=== PATIENT | female | born 1990 | race Asian ===

== ENCOUNTER 2024-03-20 08:24 | Outpatient (CLI) | payer OTHER, SELFPAY ==
--- OUTSIDE RECORDS SUMMARY | 2024-03-20 08:28 | XMS_ITS | Data Portability ---
Author Organization [place] [facility] [employer], Main Office Address [address] [place] [address] Care Team Providers Care Drug Safety Physician Name Role Phone CARLOS SAMUEL Primary Care Provider [phone] Assessment Encounter Date Assessment Date Assessment LastModified by Organization Details LastModified Time 11/11/2022 11/11/2022 32 yo F with - WELL ADULT VISIT - EYE REDNESS, B/L - FATIGUE - OVERWEIGHT - H/O VIT B12 DEFICIENCY D/w pt in detail about her findings and further plan of care. Will do routine labs. Routine eye care explained. Diet and exercise explained in detail. Cont f/u with Ophtho as per schedule. HM: WWE - 3 yrs ago. Cont f/u with Gyne/CADDYMASTER as per schedule. Flu - On next visit. Tdap, Gardasil - At pharmacy/HD. F/u in 2 weeks. Annual labs in 12/03. [email or web address] Not available 11/11/2022 17:03:53 11/18/2022 11/18/2022 32 yo F with - ANEMIA, new - VIT D DEFICIENCY - EYE REDNESS, B/L - FATIGUE - VIT B12 DEFICIENCY, mild - OVERWEIGHT Annual labs: 11/14/22. D/w pt in detail about her findings, recent labs and further plan of care. Meds as directed. Routine eye care explained. Diet and exercise explained in detail. Cont f/u with Ophtho as per schedule. HM: WWE - 3 yrs ago. Cont f/u with Gyne/CADDYMASTER as per schedule. Flu - 11/18/22. Tdap, Gardasil - At pharmacy/HD. F/u in 3 months. CBC, TIBC in 03/05. Annual labs in 12/03. [email or web address] Not available 11/18/2022 12:48:54 Plan of Treatment Reminders Order Date Submit Date Provider Last Modified By Organization Details Last Modified Time Details Appointments None recorded. Lab vitamin D, 25-hydroxy, total, serum [address] (Lab), [address] [place], [address], 08:52:31 vitamin B12 + folate, serum or blood [address] (Lab), [address] [place], [address], 08:52:31 glycohemogl obin, total, blood [address] [facility] (Lab), [address] [place], [address], 18:07:05 CBC w/ auto diff [address] [facility] (Lab), [address] [place], [address], 13:54:52 CMP, serum or plasma [address] [facility] (Lab), [address] [place], [address], 3 13:55:48 lipid panel, serum [address] [facility] (Lab), [address] [place], [address], 13:55:51 TSH, serum, reflex free T4 [address] (Lab), [address] [place], [address], 3 08:52:30 urinalysis complete, reflex culture [address] (Lab), [address] [place], [address], 3 08:52:31 CBC w/ auto diff 2022 024 [email or web address] [facility] (Lab), [address] [place], [address], 4 11:35:56 iron + total iron-bindin g capacity (TIBC), serum 2022 024 [email or web address] [facility] (Lab), [address] [place], [address], 4 11:35:56 pap, IG + HR HPV 2022 023 [facility] (Lab), [address] [place], [address], 3 07:53:12 Referral None recorded. Procedures None recorded. Surgeries None recorded. Imaging None recorded. Medication Orders cyanocobala min (vit B-12) 1,000 mcg sublingual tablet 2022 023 [facility] [place], [address], 3 12:44:38 cyanocobala min (vit B-12) 1,000 mcg/mL injection solution 2022 023 [email or web address] Not available 14:11:53 ergocalcife rol (vitamin D2) 1,250 mcg (50,000 unit) capsule 2022 023 [facility] [place], [address], 3 12:44:40 ferrous sulfate 325 mg (65 mg iron) tablet 2022 023 [facility] [address] [place], [address], 12:44:39 Patient TargetsNo targets recorded. Patient Instructions Encounter Date Encounter Id Patient Instructions Last Modified By Organization Details Last Modified Time 11/27/2022 [id number] FU in 3 year for wwe with pap, preference per patient. [email or web address] Not available 11/27/2022 18:11:17 Reason for Referral None Reported. Results Created Date Observation Date Name Description Value Unit Range Abnormal Flag Note LastModifiedBy Organization Detail LastModifiedTime 11/15/1911/14/2022 CBC/C OMPLE TE BLD COUNT W/DIF F white blood cells 6.6 x10'3 /uL 4.2-10 .8 Not Available [facility] (Lab) [address] [place], [address], 11/14/2022 13:54:52 11/15/1911/14/2022 CBC/C OMPLE TE BLD COUNT W/DIF F red blood cells 4.47 x10'6 /uL 3.80-5 .20 Not Available [facility] (Lab) [address] [place], [address], 11/14/2022 13:54:52 11/15/1911/14/2022 CBC/C OMPLE TE BLD COUNT W/DIF F hemoglobin 11.7 g/dL 12.0-1 5.6 low Not Available [facility] (Lab) [address] [place], [address], 11/14/2022 13:54:52 11/15/1911/14/2022 CBC/C OMPLE TE BLD COUNT W/DIF F hematocrit 37.7 % 35.7-4 5.7 Not Available [facility] (Lab) [address] [place], [address], 11/14/2022 13:54:52 11/15/1911/14/2022 CBC/C OMPLE TE BLD COUNT W/DIF F mean red cell volume 84.3 fL 82.0-9 9.0 Not Available [facility] (Lab) [address] [place], [address], 11/14/2022 13:54:52 11/15/1911/14/2022 CBC/C OMPLE TE BLD COUNT W/DIF F mean red cell hemoglobin 26.2 pg 27.0-3 3.0 low Not Available [facility] (Lab) [address] [place], [address], 11/14/2022 13:54:52 11/15/1911/14/2022 CBC/C OMPLE TE BLD COUNT W/DIF F mean RBC HGB concentratio n 31.0 g/dL 31.0-3 6.0 Not Available [facility] (Lab) [address] [place], [address], 11/14/2022 13:54:52 11/15/1911/14/2022 CBC/C OMPLE TE BLD COUNT W/DIF F red cell distribution width 13.6 % 11.8-1 5.5 Not Available [facility] (Lab) [address] [place], [address], 11/14/2022 13:54:52 11/15/1911/14/2022 CBC/C OMPLE TE BLD COUNT W/DIF F platelets 352 x10'3 /uL 150-40 0 Not Available [facility] (Lab) [address] [place], [address], 11/14/2022 13:54:52 11/15/1911/14/2022 CBC/C OMPLE TE BLD COUNT W/DIF F mean platelet volume 9.8 fL 9.0-12 .4 Not Available [facility] (Lab) [address] [place], [address], 11/14/2022 13:54:52 11/15/1911/14/2022 CBC/C OMPLE TE BLD COUNT W/DIF F neutrophils 51.8 % 39.0-7 2.0 Not Available [facility] (Lab) [address] [place], [address], 11/14/2022 13:54:52 11/15/1911/14/2022 CBC/C OMPLE TE BLD COUNT W/DIF F lymphocytes 41.6 % 16.0-4 7.0 Not Available [facility] (Lab) [address] [place], [address], 11/14/2022 13:54:52 11/15/1911/14/2022 CBC/C OMPLE TE BLD COUNT W/DIF F monocytes 3.9 % 5.0-12 .0 low Not Available [facility] (Lab) [address] [place], [address], 11/14/2022 13:54:52 11/15/1911/14/2022 CBC/C OMPLE TE BLD COUNT W/DIF F eosinophils 2.3 % 1.0-7. 0 Not Available [facility] (Lab) [address] [place], [address], 11/14/2022 13:54:52 11/15/1911/14/2022 CBC/C OMPLE TE BLD COUNT W/DIF F basophils 0.2 % 0.0-2. 0 Not Available [facility] (Lab) [address] [place], [address], 11/14/2022 13:54:52 11/15/1911/14/2022 CBC/C OMPLE TE BLD COUNT W/DIF F immature granulocytes 0.2 % 0.00-0 .50 Not Available [facility] (Lab) [address] [place], [address], 11/14/2022 13:54:52 11/15/1911/14/2022 CBC/C OMPLE TE BLD COUNT W/DIF F neutrophils, absolute count 3.42 x10'3 /uL 1.5-8. 0 Not Available [facility] (Lab) [address] [place], [address], 11/14/2022 13:54:52 11/15/1911/14/2022 CBC/C OMPLE TE BLD COUNT W/DIF F lymphocytes, absolute count 2.74 x10'3 /uL 1.07-3 .43 Not Available [facility] (Lab) [address] [place], [address], 11/14/2022 13:54:52 11/15/1911/14/2022 CBC/C OMPLE TE BLD COUNT W/DIF F monocytes, absolute count 0.26 x10'3 /uL 0.29-0 .99 low Not Available [facility] (Lab) [address] [place], [address], 11/14/2022 13:54:52 11/15/1911/14/2022 CBC/C OMPLE TE BLD COUNT W/DIF F eosinophils, absolute count 0.15 x10'3 /uL 0.02-0 .53 Not Available [facility] (Lab) [address] [place], [address], 11/14/2022 13:54:52 11/15/1911/14/2022 CBC/C OMPLE TE BLD COUNT W/DIF F basophils, absolute count 0.01 x10'3 /uL 0.01-0 .08 Not Available [facility] (Lab) [address] [place], [address], 11/14/2022 13:54:52 11/15/1911/14/2022 CBC/C OMPLE TE BLD COUNT W/DIF F immature granulocytes ,absolute 0.01 x10'3 /uL 0.00-0 .05 Not Available [facility] (Lab) [address] [place], [address], 11/14/2022 13:54:52 11/15/1911/14/2022 CBC/C OMPLE TE BLD COUNT W/DIF F nucleated red blood cells 0.0 % -0 Not Available [facility] (Lab) [address] [place], [address], 11/14/2022 13:54:52 11/15/19 23 11/14/2022 CBC/C OMPLE TE BLD COUNT W/DIF F NRBC# 0.00 x10'3 /uL Not Available [facility] (Lab) [address] [place], [address], 11/14/2022 13:54:52 11/15/1911/14/2022 COMPR EHENS FAVIOLA METAB OLIC PANEL sodium 138 mmol/ L 137-14 5 Not Available [facility] (Lab) [address] [place], [address], 11/14/2022 13:55:48 11/15/1911/14/2022 COMPR EHENS FAVIOLA METAB OLIC PANEL potassium 4.6 mmol/ L 3.5-5. 1 Not Available [facility] (Lab) [address] [place], [address], 11/14/2022 13:55:48 11/15/19 23 11/14/2022 COMPR EHENS FAVIOLA METAB OLIC PANEL chloride 106 mmol/ L 98-107 Not Available [facility] (Lab) [address] [place], [address], 11/14/2022 13:55:48 11/15/19 23 11/14/2022 COMPR EHENS FAVIOLA METAB OLIC PANEL carbon dioxide 26 mmol/ L 22-30 Not Available [facility] (Lab) [address] [place], [address], 11/14/2022 13:55:48 11/15/19 23 11/14/2022 COMPR EHENS FAVIOLA METAB OLIC PANEL anion gap 10.6 mmol/ L 14-22 low Not Available [facility] (Lab) [address] [place], [address], 11/14/2022 13:55:48 11/15/1911/14/2022 COMPR EHENS FAVIOLA METAB OLIC PANEL glucose 84 mg/dL 70-99 Not Available [facility] (Lab) [address] [place], [address], 11/14/2022 13:55:48 11/15/1911/14/2022 COMPR EHENS FAVIOLA METAB OLIC PANEL BUN 7 mg/dL 8-19 low Not Available [facility] (Lab) [address] [place], [address], 11/14/2022 13:55:48 11/15/1911/14/2022 COMPR EHENS FAVIOLA METAB OLIC PANEL creatinine 0.54 mg/dL 0.66-1 .25 low Not Available [facility] (Lab) [address] [place], [address], 11/14/2022 13:55:48 11/15/1911/14/2022 COMPR EHENS FAVIOLA METAB OLIC PANEL GFR >60 Refer ence Range : Denair ge GFR Healt hy Adult : >60 mL/mi n/1.7 3 m2 Chron ic Kidne y Disea se: 15-60 mL/mi n/1.7 3 m2 Kidne y Failu re: <15/m L/min /1.73 m2 www.n iddk. nih.g ov The MDRD study equat ion has not been valid ated in child leeanna <18 years of age; pregn ant women ; the elder ly >85 years of age; or in some racia l or ethni c subgr oups, such as Hispa nics. Outsi de the valid ated zelda eters , estim ated GFR is less accur ate, requi ring clini gerry judgm ent on a case- by-ca se basis . Clini gerry inter preta tion for other races and ages must be made by the clini jeri. The MDRD study equat ion has not been valid ated for the evalu ation of serum creat inine relat ed to nutri priscilla l statu s or medic ation usage . For perso ns <18 years of age, a pedia tric GFR calcu lator is avail able on the F websi te: https ://danita w.barbara trisha.o rg/pr ofess ional s/kdo qi/gf r_cal culat or Not Available [facility] (Lab) [address] [place], [address], 11/14/2022 13:55:48 11/15/1911/14/2022 COMPR EHENS FAVIOLA METAB OLIC PANEL alkaline phosphatase 69 U/L 38-126 Not Available [facility] (Lab) [address] [place], [address], 11/14/2022 13:55:48 11/15/1911/14/2022 COMPR EHENS FAVIOLA METAB OLIC PANEL alanine aminotransfe rase 18 U/L 0-35 Not Available [facility] (Lab) [address] [place], [address], 11/14/2022 13:55:48 11/15/19 23 11/14/2022 COMPR EHENS FAVIOLA METAB OLIC PANEL aspartate aminotransfe rase 22 U/L 15-37 Not Available [facility] (Lab) [address] [place], [address], 11/14/2022 13:55:48 11/15/1911/14/2022 COMPR EHENS FAVIOLA METAB OLIC PANEL bilirubin, total 0.40 mg/dL 0.20-1 .30 Not Available [facility] (Lab) [address] [place], [address], 11/14/2022 13:55:48 11/15/19 23 11/14/2022 COMPR EHENS FAVIOLA METAB OLIC PANEL calcium 9.3 mg/dL 8.4-10 .2 Not Available [facility] (Lab) [address] [place], [address], 11/14/2022 13:55:48 11/15/1911/14/2022 COMPR EHENS FAVIOLA METAB OLIC PANEL total protein 7.3 g/dL 6.3-8. 2 Not Available [facility] (Lab) [address] [place], [address], 11/14/2022 13:55:48 11/15/1911/14/2022 COMPR EHENS FAVIOLA METAB OLIC PANEL albumin 3.9 g/dL 3.4-5. 0 Not Available [facility] (Lab) [address] [place], [address], 11/14/2022 13:55:48 11/15/1911/14/2022 COMPR EHENS FAVIOLA METAB OLIC PANEL globulin 3.4 g/dL 2.6-4. 2 Not Available [facility] (Lab) [address] [place], [address], 11/14/2022 13:55:48 11/15/1911/14/2022 COMPR EHENS FAVIOLA METAB OLIC PANEL A/G ratio 1.1 ratio 1.0-2. 0 Not Available [facility] (Lab) [address] [place], [address], 11/14/2022 13:55:48 11/15/1911/14/2022 LIPID PANEL cholesterol 173 mg/dL 140-19 9 NIH DORI NSUS RECOM MENDA TION FOR AWILDA STERO L: ADULT CHILD LOW RISK: <200 <170 BORDE RLINE : <200- 239 ----- HIGH RISK: >240 >200 Not Available [facility] (Lab) [address] [place], [address], 11/14/2022 13:55:51 11/15/1911/14/2022 LIPID PANEL triglyceride s 91 mg/dL 0-150 NIH DORI NSUS REPOR T RECOM MENDA TION FOR TRIGL YCERI VERO: ADULT CHILD LOW RISK: <150 ----- BODER LINE: 150-1 99 ----- HIGH RISK: >200 ----- Not Available [facility] (Lab) [address] [place], [address], 11/14/2022 13:55:51 11/15/1911/14/2022 LIPID PANEL HDL cholesterol 41 mg/dL 40- Not Available [facility] (Lab) [address] [place], [address], 11/14/2022 13:55:51 11/15/1911/14/2022 LIPID PANEL LDL cholesterol, calculated 114 mg/dL 0-130 NIH DORI NSUS REPOR T RECOM MENDA TIONS FOR LDL: ADULT CHILD LOW RISK <130 <110 (OPTI MAL LDL) <100 ----- ESMERDE RLINE : 130-1 59 ----- HIGH RISK: >160 >130 A TRIGL YCERI DE RESUL T >400 INVAL IDATE S THE CALCU LATIO N FOR LDL FRACT IONAT ION - THE LDL RESUL T WILL NOT BE REPOR FLORIDALMA. Not Available [facility] (Lab) [address] [place], [address], 11/14/2022 13:55:51 11/15/1911/14/2022 URINA LYSIS COMPL ETE/I RIS W/RFX color YELLOW Not Available [facility] (Lab) [address] [place], [address], 11/14/2022 13:59:56 11/15/1911/14/2022 URINA LYSIS COMPL ETE/I RIS W/RFX appear EXTRA TURBID abnormal Not Available [facility] (Lab) [address] [place], [address], 11/14/2022 13:59:56 11/15/1911/14/2022 URINA LYSIS COMPL ETE/I RIS W/RFX specific gravity 1.024 1.001- 1.030 Not Available [facility] (Lab) [address] [place], [address], 11/14/2022 13:59:56 11/15/1911/14/2022 URINA LYSIS COMPL ETE/I RIS W/RFX pH 5.0 pH_un its 5.0-9. 0 Not Available [facility] (Lab) [address] [place], [address], 11/14/2022 13:59:56 11/15/1911/14/2022 URINA LYSIS COMPL ETE/I RIS W/RFX leukocytes NEGATI VE kayce/u L negati ve- Not Available [facility] (Lab) [address] [place], [address], 11/14/2022 13:59:56 11/15/1911/14/2022 URINA LYSIS COMPL ETE/I RIS W/RFX nitrite NEGATI VE negati ve- Not Available [facility] (Lab) [address] [place], [address], 11/14/2022 13:59:56 11/15/1911/14/2022 URINA LYSIS COMPL ETE/I RIS W/RFX protein NEGATI VE mg/dL negati ve- Not Available [facility] (Lab) [address] [place], [address], 11/14/2022 13:59:56 11/15/1911/14/2022 URINA LYSIS COMPL ETE/I RIS W/RFX glucose NORMAL mg/dL normal - Not Available [facility] (Lab) [address] [place], [address], 11/14/2022 13:59:56 11/15/1911/14/2022 URINA LYSIS COMPL ETE/I RIS W/RFX ketones NEGATI VE mg/dL negati ve- Not Available [facility] (Lab) [address] [place], [address], 11/14/2022 13:59:56 11/15/1911/14/2022 URINA LYSIS COMPL ETE/I RIS W/RFX urobilinogen NORMAL mg/dL normal - Not Available [facility] (Lab) [address] [place], [address], 11/14/2022 13:59:56 11/15/1911/14/2022 URINA LYSIS COMPL ETE/I RIS W/RFX bilirubin NEGATI VE mg/dL negati ve- Not Available [facility] (Lab) [address] [place], [address], 11/14/2022 13:59:56 11/15/1911/14/2022 URINA LYSIS COMPL ETE/I RIS W/RFX blood NEGATI VE mg/dL negati ve- Not Available [facility] (Lab) [address] [place], [address], 11/14/2022 13:59:56 11/15/1911/14/2022 URINA LYSIS COMPL ETE/I RIS W/RFX white blood cells 9-20 /i??h pfi?? 0-8 abnormal Not Available [facility] (Lab) [address] [place], [address], 11/14/2022 13:59:56 11/15/1911/14/2022 URINA LYSIS COMPL ETE/I RIS W/RFX red blood cells NONE /i??h pfi?? 0-4 Not Available [facility] (Lab) [address] [place], [address], 11/14/2022 13:59:56 11/15/19 23 11/14/2022 URINA LYSIS COMPL ETE/I RIS W/RFX bacteria NONE Not Available [facility] (Lab) [address] [place], [address], 11/14/2022 13:59:56 11/15/1911/14/2022 URINA LYSIS COMPL ETE/I RIS W/RFX mucous MANY /i??l pfi?? abnormal Not Available [facility] (Lab) [address] [place], [address], 11/14/2022 13:59:56 11/15/1911/14/2022 URINA LYSIS COMPL ETE/I RIS W/RFX squamous epithelial PACKED FIELD /i??l pfi?? abnormal Not Available [facility] (Lab) [address] [place], [address], 11/14/2022 13:59:56 11/15/1911/14/2022 VITAM IN D 25-HY DROXY vd25oh 22.9 NG/mL 30-100 low Vitam in D Statu s: Defic ient: <20 ng/mL Insuf ficie nt: 20-29 ng/mL Suffi cient : 30-10 0 ng/mL Not Available [facility] (Lab) [address] [place], [address], 11/14/2022 14:10:22 11/15/1911/14/2022 TSH W/REF VALERI FT4 TSH with reflex free T4 1.680 uIU/m L 0.465- 4.680 Not Available [facility] (Lab) [address] [place], [address], 11/14/2022 14:27:20 11/15/1911/14/2022 VITAM IN B12 (INA LAURA ) vb12 287 pg/mL 239-93 1 Not Available [facility] (Lab) [address] [place], [address], 11/14/2022 14:58:23 11/15/1911/14/2022 FOLAT E, SERUM /PLAS MA folate 7.11 NG/mL 2.76-2 0.0 Not Available [facility] (Lab) [address] [place], [address], 11/14/2022 14:58:28 11/15/1911/14/2022 HEMOG LOBIN A1C HA1C 5.3 % 4.0-6. 0 Diabe vishal Scree ashley Crite nithin: <5.7% Consi stent with absen ce of diabe vishal 5.7-6 .4% Consi stent with incre ased risk for diabe vishal (pred iabet es) >OR=6 .5% Consi stent with diabe vishal REFER ENCE: Diabe vishal Care 2016, 39(Heart ppl.1 ):s13 -s22 Not Available [facility] (Lab) [address] [place], [address], 11/14/2022 18:07:05 11/28/1912/02/2022 PAP THINP REP W/HPV -HR diagnosis: Yary SALMERON FOR INTRA EPITH ELIAL LESIO N OR RUPERT TEJADA . Not Available [facility] (Lab) [address] [place], [address], 12/02/2022 13:08:59 11/28/1912/02/2022 PAP THINP REP W/HPV -HR specimen adequacy: Yary Banda Satis factaria ry for evalu ation . Endoc ervic al and/o r squam ous m etapl astic cells (endo cervi gerry compo nent) are prese nt. Not Available [facility] (Lab) [address] [place], [address], 12/02/2022 13:08:59 11/28/1912/02/2022 PAP THINP REP W/HPV -HR performed by: Yary Ponce Radcl iff, Cytot echno logis t (ASCP ) Not Available [facility] (Lab) [address] [place], [address], 12/02/2022 13:08:59 11/28/1912/02/2022 PAP THINP REP W/HPV -HR . . Not Available [facility] (Lab) [address] [place], [address], 12/02/2022 13:08:59 11/28/1912/02/2022 PAP THINP REP W/HPV -HR note: Commen t The Pap smear is a scree ashley test desig karol to aid in the detec tion of wendy ligna nt and malig nant condi tions of the uteri ne cervi x. It is not a diagn ostic proce dure and shoul d not be used as the sole means of detec ting cervi gerry cance r. Both false -posi tive and false -nega tive repor ts do occur . . Not Available [facility] (Lab) [address] [place], [address], 12/02/2022 13:08:59 11/28/1912/02/2022 PAP THINP REP W/HPV -HR test methodology: Yadiraen t This liqui d based ThinP rep(R ) pap test was scree karol with the use of an image guide lion paez. Not Available [facility] (Lab) [address] [place], [address], 12/02/2022 13:08:59 11/28/1912/02/2022 PAP THINP REP W/HPV -HR aptima HPV, reflex Negati ve negati ve This nucle ic acid ampli ficat ion test detec ts fourt een high- risk HPV types (16,1 8,31, 33,35 ,39,4 5,51, 52,56 ,58,5 9,66, 68) witho ut diffe renti ation . Perfo rmed at: [facility] [place] [facility] [address] [facility] [place] , [place] [address] Lab Direc tor: Hipolito prado MD, Phone : [phone] Perfo rmed at: [facility] [place] [address] , [place] [address] Lab Direc tor: Ken ahn MD, Phone : [phone] Perfo rmed at: =[facility] - [facility] [place] [address] , [place] [address] Lab Direc tor: Ken ahn MD, Phone : [phone] Not Available [facility] (Lab) [address] [facility], [place], [address], 12/02/2022 13:08:59 Result Notes None recorded. Problems Name Problem SNOMED Code Status Onset Date Resolution Date Notes Provider Name and Address Organization Details Recorded Time Vitamin B12 deficiency (non anemic) 90885603 Active 023 Carlos Samuel MD [address] [facility], [address], [address], [employer] 3 16:43:33 Overweight 473474243 Active 023 Carlos Samuel MD [address] [facility], [address], [address], [employer] 3 16:43:43 Fatigue 17196564 Active Richa Samuel MD [address] [facility], [address], [address], [employer] 3 17:01:45 Anemia 696326447 Active Richa Samuel MD [address] [facility], [place], [address], [employer] 3 12:27:55 Vitamin D deficiency 05018183 Active Richa Samuel MD [address] [facility], [place] [address], [place], [address], [employer] 3 12:28:04 Problem Notes None recorded. Procedures Surgical History Date Name Laterality Status Provider Name and Address Organization Details Recorded Time 11/27/2022 Date of Last Pap Smear completed Oksana Hall RN [facility] [place] [facility] 11/27/2022 15:42:28 Imaging Results None recorded. Procedure Notes None recorded. Medical Equipment None Reported. Allergies No known drug allergies Medications Name Sig Start Date Stop Date Status Note LastModified by Organization Details LastModified Time cyanocobalam in (vit B-12) 1,000 mcg/mL injection solution Inject 1 mL every month by subcutaneou s route. 2022 active Not Available Not Available Not Avai lable cyanocobalam in (vit B-12) 1,[address] 1 tablet every day by sublingual route as directed. 2022 active Not Available Not Available Not Avai lable ergocalcifer ol (vitamin D2) 1,250 mcg (50,000 unit) capsule TAKE 1 CAPSULE BY MOUTH ONCE A WEEK DIRECTED active Not Available Not Available No t Available FeroSul 325 mg (65 mg iron) tablet TAKE 1 TABLET BY MOUTH TWICE DAILY AFTER A MEAL active Not Available Not Available No t Available Vitals Date Recorded Body height Body mass index (BMI) Body weight Body temperature Heart rate Respiratory rate Oxygen saturation Oxygen saturation in Arterial blood by Pulse oximetry Systolic blood pressure Diastolic blood pressure Provider Name and Address Organization Details Last Updated DateTime 3 149.86 cm 27.8 kg/m2 62633.6 g 98.4 [degF] 78 /min 16 /min 98 % 98 % 102 mm[Hg] 60 mm[Hg] Tres Navarro [facility] [employer] [facility] 3 16:39:33 Date Recorded Body height Body mass index (BMI) Body weight Body temperature Heart rate Oxygen saturation Oxygen saturation in Arterial blood by Pulse oximetry Systolic blood pressure Diastolic blood pressure Provider Name and Address Organization Details Last Updated DateTime 3 149.86 cm 27.1 kg/m2 19732.1 3 g 97.6 [degF] 76 /min 98 % 98 % 99 mm[Hg] 67 mm[Hg] Katy Manzano MA [facility] [place] [facility] 3 12:40:33 Date Recorded Body height Body mass index (BMI) Body weight Body temperature Heart rate Respiratory rate Oxygen saturation Oxygen saturation in Arterial blood by Pulse oximetry Pain severity - 0-10 verbal numeric rating [Score] - Reported Systolic blood pressure Diastolic blood pressure Provider Name and Address Organization Details Last Updated DateTime 149.86 cm 27.5 kg/m2 05523.9 1 g 96.6 [degF] 65 /min 16 /min 97 % 97 % 0 124 mm[Hg] 80 mm[Hg] Oksana Hall RN [facility] [place] [facility] 15:39:49 Social History Question Answer Notes LastModified by Organizat ion Details LastModified Time Tobacco Smoking Status Never Smoker Tres garzon [facility] [employer] [facility] 11/11/2022 16:34:43 Do You Have An Advance Directive? No Information not available 11/11/2022 What Is Your Level Of Alcohol Consumption? None Information not available 11/27/2022 What Is Your Level Of Caffeine Consumption? None Information not available 11/27/2022 What Is Your Code Status? Full Code Information not available 11/11/2022 In The 14 Days Before Symptom Onset, Have You Had Close Contact With A Laboratory-confir med COVID-19 While That Case Was Ill? No Information not available 11/11/2022 In The 14 Days Before Symptom Onset, Have You Had Close Contact With A Person Who Is Under Investigation For COVID-19 While That Person Was Ill? No Information not available 11/11/2022 Are You Currently Employed? Yes Information not available 11/27/2022 What Type Of Diet Are You Following? REGULAR Information not available 11/11/2022 What Is The Highest Grade Or Level Of School You Have Completed Or The Highest Degree You Have Received? [id number] Information not available 11/11/2022 Have There Been Any Changes To Your Family Or Social Situation? No Information no t available 11/11/2022 What Is The Fluoride Status Of Your Home? Fluoridated Information not available 11/11/2022 Do You Use Insect Repellent Routinely? Yes Information not available 11/11/2022 [facility] Information not available 11/11/2022 Do You Have A Medical Power Of Analytics Consultant? No Information not available 11/11/2022 How Many Children Do You Have? 2 Information not available 11/11/2022 Do You Have Any Pets? No Information not available 11/11/2022 What Is Your Relationship Status? Information not available 11/27/2022 Do You Use Your Seat Belt Or Car Seat Routinely? No Information not available 11/11/2022 Are You Sexually Active? Yes Information not available 11/11/2022 Do You Have Smoke And Carbon Monoxide Detectors In Your Home? Yes Information not available 11/27/2022 Are There Any Smokers In Your House? No Information not available 11/27/2022 Do You Participate In Social Media? No Information not available 11/11/2022 Do You Feel Stressed (tense, Restless, Nervous, Or Anxious, Or Unable To Sleep At Night)? [id number] Information not available 11/11/2022 Do You Use Sunscreen Routinely? Yes Information not available 11/11/2022 Have You Recently Traveled Abroad? No Information not available 11/11/2022 Are You Currently In School? No Information not available 11/11/2022 Sex: Female Functional Status Question Answer Note LastModified by Organization D etails LastModified Time What is your exercise level? None Information not available 11/27/2022 Mental Status None recorded. Family History Nothing Reported. Medical History Condition Response BLINDNESS N RHEUMATIC FEVER N KIDNEY STONES N BLADDER PROBLEMS N MRSA N OTHER # 1 N POLIO N LUNG DISEASE/DISORDER N HISTORY OF DRUG ABUSE N RADIATION / CHEMOTHERAPY N COPD N Other # 2 N BLOOD DISEASES N SURGERY N EAR OR HEARING PROBLEMS N MUMPS N SHINGLES N FEMALE PROBLEMS / INFECTIONS N DEPRESSION (INCLUDING POST ) N BOWEL PROBLEMS N FAILED BACK SYNDROME N STROKE/TIA N THYROID DISEASE N ULCERS N BENIGN PROSTATIC HYPERPLASIA N MEASLES N CERVICALGIA N TB SKIN TEST N HYPOTENSION N MYOCARDIAL INFARCTION N PARAPELGIA N OBESITY N GERD/NAUSEA N ANEURYSM N URINARY/BLADDER/KIDNEY PROBLEMS N CORONARY ARTERY DISEASE (CAD) N MENIERE'S DISEASE N Do you have Advance directive? N ADDICTION CONCERNS N ENDOMETRIOSIS N USE OF BLOOD THINNERS N SKIN PROBLEMS N EMPHYSEMA N GASTROINTESTINAL DISORDER N PERIPHERAL ARTERY DISEASE N MUSCLE,JOINT OR BONE PROBLEMS N GASTROINTESTINAL BLEEDING N BLOOD CLOTS N ASTHMA N CATARACTS N Abdominal Pain N ERECTILE DYSFUNCTION N ARTERIAL INSUFFICIENCY N GI PROBLEMS N CHF N Low Testosterone N NEUROPATHY N INFERTILITY N AIDS/HIV N FRACTURES N CHEMOTHERAPY / RADIATION N VISION/EYE PROBLEMS N LIVER DISEASE N HYPERTENSION N TOURETTE'S N ANXIETY DISORDER N BLOOD TRANSFUSION N ANEMIA/BLOOD DISORDER N CHRONIC EAR INFECTIONS N BRONCHITIS N TUBERCULOSIS N GLAUCOMA N FOOT PROBLEM N DIVERTICULITIS N SLEEP APNEA N CHICKENPOX N BACK INJECTIONS N ALLERGIES/HAYFEVER N INFECTIOUS DISEASE N PROSTATE N HEART ARRHYTHMIA N ESRD N INSOMNIA N HIGH CHOLESTEROL / HYPERLIPIDEMIA N EYE PROBLEMS N HYPERTHYROIDISM N PVD N EATING DISORDER N EDEMA N CHRONIC PAIN SYNDROME N CONSTIPATION N CAROTID BLOCKAGE N BACK / NECK PROBLEMS N HAVE YOU BEEN HOSPITALIZED OR SEEN IN [facility] IN THE PAST YEAR ? N ATHEROSCLEROSIS N BREAST PROBLEMS N DIALYSIS N POLYCYSTIC OVARIES N ECZEMA N FIBROMYALGIA N OSTEOPOROSIS N ARTHRITIS N NO SIGNIFICANT PAST MEDICAL HISTORY N APPENDICITIS N DIABETES, TYPE N BAD TEETH N VON WILLIBRAND'S DISEASE N HEARTBURN / REFLUX N ADD/ADHD N AUTISM SPECTRUM DISORDER (ASD) N POST LAMINECTOMY SYNDROME N HEPATITIS / LIVER DISEASE N PULMONARY DISEASE N GOUT N SLEEP DISORDER N ALZHEIMER'S DISEASE N PAIN N DEMENTIA N HERPES N SEIZURES/EPILEPSY N HEADACHES/MIGRAINES N VASCULAR DISEASE N PACEMAKER N DIZZINESS N KIDNEY DISEASE N HEART DISEASE/HEART PROBLEMS N SCARLET FEVER N MULTIPLE SCLEROSIS N MENTAL DISORDER/ILLNESS N DEVELOPMENTAL OR BEHAVIORAL DISORDERS N NEUROPSYCHOLOGICAL N CANCER: SPECIFY N CARDIAC ARRHYTHMIA N PNEUMONIA N ATRIAL FIBRILLATION N Gall Stones N PULMONARY EMBOLISM N AUTOIMMUNE DISEASE N Gynecological History Statement/Question Response Date of Last Colonoscopy Flow Moderate Most Recent Bone Density Date of LMP 10/30/2022 Frequency of Cycle (Q days) 28 Menses Monthly Y Duration of Flow (days) 7 Date of Last Pap Smear 11/27/2022 Age at Menarche Most Recent Mammogram Obstetrics History GPAL:G 2 P 2 0 0 0 Type Value Full Term 2 Total 2 Immunizations Vaccine Type Date Status Note Provider Nam e and Address Organization Details Recorded Time Influenza, split virus, quadrivalent, PF 11/18/2022 completed ZENA[place] [facility] [place] [facility] 11/18/2022 16:53:43 Past Encounters Encounter ID Performer Location Encounter Start Date Encounter Closed Date Diagnosis/Indication Diagnosis SNOMED-CT Code Diagnosis ICD10 Code Diagnosis Note [id number] Carlos Samuel MD [address] [address] 11/11/2022 16:28:07 11/11/2022 17:05:34 Adult health examination 242160045 Z00.00 Vitamin B1 2 deficiency (non anemic) 96758463 E53.8 Overweight 389726690 E66 .3 Screening for disorder 336751284 Z13.9 Fatigue 38943136 R53.83 [id number] Carlos Samuel MD [address] [address] 11/14/2022 10:13:20 11/14/2022 10:47:52 [id number] Carlos Samuel MD [address] [address] 11/18/2022 12:14:01 11/18/2022 12:53:02 Vitamin B12 deficiency (non anemic) 74360694 E53.8 Fatigue 80043010 R53.83 Overweight 876501460 E66 .3 Anemia 441390193 D64.9 Vitamin D deficiency 347 99779 E55.9 Administra tion of influenza vaccine 64335654 Z23 [id number] Oksana Payne NP [address] [address] 11/27/2022 15:22:29 11/27/2022 17:46:11 Gynecologic examination 34375823 Z01.419 Encouraged well balanced meals, active lifestyle, and routine vision and dental appts. Health Concerns Section Related Observation LastModified by Organization Detai ls LastModified Time None Recorded Concern Status LastModified by Organization Details LastModified Time None Recorded Advance Directives Directive N: Payers Encounter Date Sequence Insurance Name Policy Number Policy [place] Covered Member ID [place] Member ID Guarantor Name 11/11/2022 1 [place] [facility] Aurelia [facility] [id number] Aurelia [facility] 11/14/2022 1 [place] [facility] [id number] 11/18/2022 1 [place] [facility] Aurelia Samuel [id number] Aurelia Samuel 11/27/2022 1 [place] [facility] Aureliajane Samuel [id number] [facility] Notes Date Note Type Note Provider Name and Address Organization Details Recorded Time 11/11/2022 text/html New pt visit:32 yo F is here to establish her care. Pt was seeing PCP at [facility] in the past.Doing overall well. Pt wants to do full lab tests including Vit B12. Pt gets redness of her both eyes and in the past, her Vit b12 was low, and when it was corrected, it resolved. C/o fatigue at times. Denies any mood problems/snoring. Pt is f/u with Ophtho too.PMH, FH and SH reviewed. Carlos Samuel MD [address], [place], [address], [employer] 11/11/2022 17:04:25 11/18/2022 text/html Pt is here for f /u on her annual labs. Doing overall well. Denies any new concern. Pt gets redness of her both eyes and in the past, her Vit b12 was low, and when it was corrected, it resolved. C/o fatigue at times. Denies any mood problems/snoring. Pt is f/u with Ophtho too. Carlos Samuel MD [address], [place], [address], [employer] 11/18/2022 12:49:41 11/27/2022 text/html Here for wwe. Has 19 mo old.Has copper IUD (10 year) placed 6 mo after baby born.Period heavy for 2 days, then 4 days later done. Occasionally done at 7 days. Getting monthly. Oksana Payne NP [address], [employer], [place], [address], [employer] 11/27/2022 18:11:32 OBGyn Episode No OBEpisode recorded.
[2024-03-20 09:20] LABS: Hematocrit 34.8 % (37.0-47.0); Hemoglobin 10.5 g/dL (12.0-15.0); Mean Corpuscular HGB Conc 30.2 g/dl (32-36); Mean Corpuscular Hemoglobin 24.5 pg (26-34); Mean Corpuscular Volume 81.1 fl (80-100); Mean Platelet Volume 9.6 fl (7.4-10.4); Platelet Count Result 346 k/mm3 (150-375); Red Blood Count 4.29 M/mm3 (4.2-5.4); Red Cell Distribution Width 14.9 % (11.5-14.5); White Blood Count 7.3 K/mm3 (4.5-10.0)
== END 2024-03-20 08:25 | disposition home or self-care (01) ==
LOC: ANHLAB 08:25
PROVIDERS: Visit Provider Student in an Organized Health Care Education/Training Program
DX: Z30.2 Encounter for sterilization (principal)
CPT/HCPCS: 36415; 85027

== ENCOUNTER 2024-03-25 01:15 | Day surgery (SDC) | payer OTHER, SELFPAY ==
[2024-03-19 14:07] VITALS: BMI 27.3
--- NOTE | 2024-03-19 14:39 | PC.NURSE ---
Report to the Outpatient Waiting Room, entrance under the green pavilion located off [facility], at time _1000_ on date _[phone]_. Planned Procedure Time: _1200_.? Time changes happen often and if your time is changed the preop area will call you the afternoon before. - You and your visitor will be asked to self-screen and do not enter if you have any COVID symptoms. Please call surgeon if you need to reschedule. - A mask is optional within the hospital at this time. Patients may have clear liquids (water, carbonated beverages, clear teas, apple juice) until 3 hours prior to surgery with a maximum of 20 ounces. - No food from midnight until time of surgery and no smoking, or chewing tobacco (or any form of nicotine). No chewing gum, candy or mints. Take only the following medications with a SIP of water on the morning of surgery: ____None___ DO NOT STOP ANY OF YOUR OTHER PRESCRIPTION MEDICATIONS PRIOR TO SURGERY EXCEPT THE FOLLOWING Hold all vitamins and supplements for 3 days per anesthesiologist. Medications to discontinue per physician ____None____ Date to take last dose Please no make-up, nail ku[place]i, hairspray, perfume, deodorant, or body powder the day of surgery.? No jewelry (including any body piercings) or valuables the day of surgery, leave them at home.? Please take a shower or bath the night before, or the morning of, surgery with an antibacterial soap.? Wear comfortable, loose fitting clothing.? - Jewelry must be removed prior to entering the operating room.? Rings and piercings that are not removed may be cut off. - The hospital will not accept responsibility for valuables.? - Please leave all valuables, including medications, at home the day of surgery. If you are going home after surgery, a licensed airport shuttle driver must drive you home.? - NO public transportation without another adult if you receive anesthesia. - We recommend that an adult stay with you for 24 hours following discharge. - We also recommend that you do not drive, make important decision, drink alcoholic beverages, or take any drugs that were not prescribed by your health care provider for at least 24 hours after your discharge time. Follow any additional instructions given to you from your surgeon. Telephone instructions given to __ehal__and asked if any additional questions and then verbalized understanding. Patient advised to call surgeon office or pre surgery nurse liaison [phone] if any additional questions
[2024-03-25] VITALS (22 sets, daily range): BP systolic 96–124; BP diastolic 53–83; PULSE 36–146; RESP 12–18; TEMP 36.5–36.7; O2SAT 79–100
--- OUTSIDE RECORDS SUMMARY | 2024-03-25 01:17 | XMS_ITS | Encounter Summary ---
Author Organization [facility] Address [address] [place] [address] Care Team Providers Care Maintenance Supervisor Electrical Name Role Phone Pcp, Verify Primary Care Provider Unavailabl e Encounter Details Date Type Department Care Team (Late st Contact Info) Description 04/16/2021 E-Advice [facility] [place] [address] [facility] [address] [place] [address] Bridgette Abreu CMA scheduling appt Social History Tobacco Use Types Packs/Day Years Used Date Smoking Tobacco: Never Smokeless Tobacco: Never Alcohol Use Standard Drinks/Week Comments Never 0 (1 standard drink = 0.6 oz pur e alcohol) [place] Depression Scale Answer Date Recorded Total 0 03/28/2021 The thought of harming myself has occurred to me Never 03/28/2021 Interpersonal Safety Answer Date Record ed RETIRE In the past year, hav e you ever been physically hurt, threatened, controlled or made to feel afraid by someone close to you? No 02/11/2021 RETIRE Currently, are you in a relationship where you are being physically hurt, threatened, controlled or made to feel afraid? No 02/11/2021 Inadequate Housing Answer Date Recorded Social Determinants: Housing (Overall Score Help er) 0 09/22/2018 Sexually Active Control Partners Comments Yes Male Benito Samuel: Sex and Gender Information Value Date Recorded Sex Assigned at Not on file Gender Identity Not on file Sexual Orientation Not on file Job Start Date Occupation Industry Not on file Not on file Not on file documented as of this encounter Plan of Treatment Not on file documented as of this encounter Visit Diagnoses Not on filedocumented in this encounter Care Teams Maintenance Supervisor Electrical Relationship Specialty Start Date End Date Pcp, Verify PCP - General 11/03/20 documented as of this encounter
--- OUTSIDE RECORDS SUMMARY | 2024-03-25 01:17 | XMS_ITS | Encounter Summary ---
Author Organization [facility] Address [address] [place] [address] Care Team Providers Care Rod Mill Tender Name Role Phone Pcp, Verify Primary Care Provider Unavailabl e Pcp, Verify Primary Care Provider Unavailabl e Encounter Details Date Type Department Care Team (Late st Contact Info) Description 11/01/2020 E-Advice [facility] [place] [address] [facility] [address] [place] [address] Agueda Prasad, RN Result Social History Tobacco Use Types Packs/Day Years Used Date Smoking Tobacco: Never Smokeless Tobacco: Never Alcohol Use Standard Drinks/Week Comments Never 0 (1 standard drink = 0.6 oz pur e alcohol) [place] Depression Scale Answer Date Recorded Total 0 07/14/2020 The thought of harming myself has occurred to me Never 07/14/2020 Inadequate Housing Answer Date Recorded Social Determinants: Housing (Overall Score Help er) 0 09/22/2018 Sexually Active Control Partners Comments Yes Male Benito Samuel: Comments Yes Sex and Gender Information Value Date Recorded Sex Assigned at Not on file Gender Identity Not on file Sexual Orientation Not on file Job Start Date Occupation Industry Not on file Not on file Not on file documented as of this encounter Plan of Treatment Not on file documented as of this encounter Visit Diagnoses Not on filedocumented in this encounter Additional Health Concerns Infection Onset Date Last Indicated Resolved Time COVID (rule out) 02/11/2021 02/11/2021 02/11/2021 9: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
--- OUTSIDE RECORDS SUMMARY | 2024-03-25 01:17 | XMS_ITS | Encounter Summary ---
Author Organization [facility] Address [address] [place] [address] Care Team Providers Care Plant Tour Guide Name Role Phone Pcp, Verify Primary Care Provider Unavailabl e Encounter Details Date Type Department Care Team (Late st Contact Info) Description 12/14/2020 Orders Only [facility] [place] [address] [place] [address] Joshua Santizo MD [address] [place] [address] with 30 completed weeks gestation; IUGR (intrauterine growth restriction) affecting care of mother, third trimester, fetus 1; , unspecified gestational age; Low-lying placenta Social History Tobacco Use Types Packs/Day Years Used Date Smoking Tobacco: Never Smokeless Tobacco: Never Alcohol Use Standard Drinks/Week Comments Never 0 (1 standard drink = 0.6 oz pur e alcohol) [place] Depression Scale Answer Date Recorded Total 0 [...] documented as of this encounter Visit Diagnoses Diagnosis with 30 completed weeks gestation (CMD) IUGR (intrauterine growth restriction) affecting care of mother, third trimester, fetus 1 (CMD) , unspecified gestational age (CMD) Low-lying placenta (CMD) Hemorrhage from placenta previa, unspecified as to episode of care documented in this encounter Orders Imaging Orders Without Results Count Last Order ed Date First Ordered Date US OB FOLLOW UP SINGLE GESTATION 1 12/15/19 US OB TRANSVAGINAL 1 12/14/2020 documented in this encounter Additional Health Concerns Infection Onset Date Last Indicated Resolved Time COVID (rule out) 02/11/2021 02/11/2021 02/11/2021 9:44 PM SHORT ORDER FRY COOK documented as of this encounter Care Teams Plant Tour Guide Relationship Specialty Start Date End Date Pcp, Verify PCP - General 11/03/20 documented as of this encounter
--- OUTSIDE RECORDS SUMMARY | 2024-03-25 01:17 | XMS_ITS | Encounter Summary ---
Author Organization [facility] Address [address] [place] [address] Care Team Providers Care Interior Design Principal Name Role Phone Pcp, Verify Primary Care Provider Unavailabl e Encounter Details Date Type Department Care Team (Late st Contact Info) Description 02/08/2021 Telephone [facility] [address] [facility] [address] [place] [address] Group, [facility] [address] [place] [address] Social History Tobacco Use Types Packs/Day Years Used Date Smoking Tobacco: Never Smokeless Tobacco: Never Alcohol Use Standard Drinks/Week Comments Never 0 (1 standard drink = 0.6 oz pur e alcohol) [place] Depression Scale Answer Date Recorded Total 0 07/14/2020 The thought of harming myself has occurred to me Never 07/14/2020 Interpersonal Safety Answer Date Record ed RETIRE [...] file Not on file Not on file COVID-19 Exposure Response Date Recorded In the last month, have you been in contact with someone who was confirmed or suspected to have Coronavirus / COVID-19? 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
--- OUTSIDE RECORDS SUMMARY | 2024-03-25 01:17 | XMS_ITS | Clinical Summary ---
Author Organization [facility] Address [address] [place] [address] Care Team Providers Care Patient Services Manager Name Role Phone Pcp, Verify Primary Care Provider Unavailabl e Allergies No known active allergies Medications Medication Sig Dispensed Refills Start Date End Date Status Vit-Fe Fumarate-FA ( One Daily) 27-0.8 MG Tab 06/19/2017 Active folic acid (FOLATE) 1 MG tablet Take 1 tablet by mouth daily. 90 tablet 1 07/14/2020 Active Ferrous Sulfate (Iron) 325 (65 Fe) MG TabIndications:24 weeks gestation of (CMD) Take 1 tablet by mouth 2 times daily. 180 tablet 1 10/31/2020 Active Additional Information Patient taking differently:1 tablet OralDAILY, Reported on 02/11/2021 hydroCORTisone (CORTIZONE) 1 % creamIndications:Pr egnancy, unspecified gestational age (CMD),Dizziness of unknown cause Apply topically 2 times daily. 30 g 11/14/2020 Active norethindrone (Ortho Micronor) 0.35 MG tablet Take 1 tablet by mouth daily. 84 tablet 1 03/28/2021 Active PARAGARD INTRAUTERINE COPPER IU [facility]: [address]-4 Active Immunizations Name Administration Dates Next Due COVID Moderna 0.5 mL 12Y+ 06/03/2020 Influenza, split virus, quadrivalent, PF 021 Tdap 12/06/2020 Medical History Medical History Date Comments Diabetes mellitus (CMD) GDMA in prior TB (tuberculosis) Took tx PP Vitamin B 12 deficiency Anemia Family History Medical History Relation Comments Diabetes Mother Relation Status Comments Mother Social History Tobacco Use Types Packs/Day Years Used Date Smoking Tobacco: Never Smokeless Tobacco: Never Alcohol Use Standard Drinks/Week Comments Never 0 (1 standard drink = 0.6 oz pur e alcohol) [place] Depression Scale Answer Date Recorded Total 0 [...] Sexually Active Control Partners Comments Yes Male Bijanit Samuel: [phone] Sex and Gender Information Value Date Recorded Sex Assigned at Not on file Gender Identity Not on file Sexual Orientation Not on file Job Start Date Occupation Industry Not on file Not on file Not on file Obstetrics History Para Term AB IAB SAB Ectopic Molar Multiple Living Live Births 2 2 1 1 0 2 2 Date Outcome GA Total Labor Labor/2nd/3rd Weight Sex Type Anes PTL Kierra A1 A5 Name Clin 34w 0d 2.165 kg (4 lb 12.4 oz) F Vag-S pont Epidur al Livin g 2021 Term 39w 0d 1h 48m 1h 08m/0h 34m/0h 06m 2.775 kg (6 lb 1.9 oz) M Vag-S pont Epidur al N Livin g 9 9 SAMUEL, BOY AURELIA foster, Ryan Casanova MD Complications:None [place] [facility] [place] 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 Pt had 1st dose of COVID vaccine on 06/03. Last Filed Vital Signs Vital Sign Reading Time Taken Comments Blood Pressure 111/84 04/25/2021 3:31 PM CDT Pulse 64 03/28/2021 4:02 PM GEOTHERMAL TECHNICIAN Temperature 36.4 C (97.5 F) 04/25/2021 3:31 PM CDT Respiratory Rate 16 02/14/2021 1:20 PM GEOTHERMAL TECHNICIAN Oxygen Saturation 98% 04/25/2021 3:31 PM CDT Inhaled Oxygen Concentration - - Weight 70.8 kg (156 lb) 04/25/2021 3:31 PM CDT Height 149.9 cm (4' 11) 04/25/2021 3:31 PM CDT Body Mass Index 31.51 04/25/2021 3:31 PM CDT Plan of Treatment Health Maintenance Due Date Last Done Comments Depression Screening 2003 Varicella Vaccine (1 of 2 - 13+ 2-dose series) 02/16/2004 Hepatitis B Vaccine (1 of 3 - 19+ 3-dose series) 2010 COVID-19 Vaccine (2 - 2023-2 5 season) 2023 06/03/2020 Influenza Vaccine (#1) 2023 12/06/2020 DTaP/Tdap/Td Vaccine (2 - Td or Tdap) 12/06/2030 12/06/2020 HPV Vaccine Aged Out No longer eligi ble based on patient's age to complete this topic Hepatitis A Vaccine Aged Out No longe r eligible based on patient's age to complete this topic Meningococcal Serogroup B Vaccine Aged Out No longer eligible based on patient's age to complete this topic Meningococcal Vaccine Aged Out No rufina khai eligible based on patient's age to complete this topic Pneumococcal Vaccine 0-49 Aged Out No longer eligible based on patient's age to complete this topic Care Teams Patient Services Manager Relationship Specialty Start Date End Date Pcp, Verify PCP - General 11/03/20
--- OUTSIDE RECORDS SUMMARY | 2024-03-25 01:17 | XMS_ITS | Referral Summary ---
Author Organization [facility] Address [address] [place] [id number] Care Team Providers Care Pilates Coordinator Name Role Phone Pcp, Verify Primary Care [...] 1 03/28/2021 Active [employer] [facility]: [address]-1 Active Immunizations Name Administration Dates Next Due COVID Moderna 0.5 mL 12Y+ 06/03/2020 Influenza, split virus, quadrivalent, PF 021 Tdap 12/06/2020 Social History Tobacco Use Types Packs/Day Years Used Date Smoking Tobacco: Never Smokeless Tobacco: Never Alcohol Use Standard Drinks/Week Comments Never 0 (1 standard drink = 0.6 oz pur e alcohol) [place] Depression Scale Answer Date Recorded Total 0 [...] Sexually Active Control Partners Comments Yes Male Hardit Samuel: Sex and Gender Information Value Date Recorded Sex Assigned at Not on file Gender Identity Not on file Sexual Orientation Not on file Job Start Date Occupation Industry Not on file Not on file Not on file Last Filed Vital Signs Vital Sign Reading Time Taken Comments Blood Pressure 111/84 04/25/2021 3:31 PM CDT Pulse 64 03/28/2021 4:02 PM [employer] Temperature 36.4 C (97.5 F) 04/25/2021 3:31 PM CDT Respiratory Rate 16 02/14/2021 1:20 PM [employer] Oxygen Saturation 98% 04/25/2021 3:31 PM CDT Inhaled Oxygen Concentration - - Weight 70.8 kg (156 lb) 04/25/2021 3:31 PM CDT Height 149.9 cm (4' 11) 04/25/2021 3:31 PM CDT Body Mass Index 31.51 04/25/2021 3:31 PM CDT Plan of Treatment Not on file Care Teams Pilates Coordinator Relationship Specialty Start Date End Date Pcp, Verify PCP - General 11/03/20
--- OUTSIDE RECORDS SUMMARY | 2024-03-25 01:17 | XMS_ITS | Encounter Summary ---
Author Organization [facility] Address [address] [place] [id number] Care Team Providers Care Driver Manager Name Role Phone Pcp, Verify Primary Care Provider Unavailabl e Reason for Visit * Reason Comments Leg Encounter Details Date Type Department Care Team ([facility] st Contact Info) Description 02/11/2021 Nurse Triage [facility] [address] [place] [address] Group, [facility] [address] [place] [address] Leg Social History Tobacco Use Types Packs/Day Years Used Date Smoking Tobacco: Never Smokeless Tobacco: Never Alcohol Use Standard Drinks/Week Comments Never 0 (1 standard drink = 0.6 oz pur e alcohol) [place] Depression Scale Answer Date Recorded Total 0 [...] COVID-19? 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 Location / description: Ankles to the knees, redness on both top of the toes. Pain with walking. Painful to touch. Mild pain with swallowing. Precipitating Factors: Unsure. Pain Scale (1-10), 10 highest: 0/10 Associated Symptoms: Vomited once no blood and no green color vomit. Dizziness, lower abdominal pain on and off. with sitting down LMP : Patient's last menstrual period was 05/15/2020. Are you or breast feedin weeks Recent visits (last 3-4 weeks) for same reason or recent surgery: Reason for Disposition MODERATE leg swelling (e.g., more than just ankles, below knees) Protocols used: - LEG SWELLING AND EDEMA-A-AH documented in this encounter Plan of Treatment Not on file documented as of this encounter Visit Diagnoses Not on filedocumented in this encounter Additional Health Concerns Infection Onset Date Last Indicated Resolved Time COVID (rule out) 02/11/2021 02/11/2021 02/11/2021 9:44 PM DRAW FIRE OPERATOR documented as of this encounter Care Teams Driver Manager Relationship Specialty Start Date End Date Pcp, Verify PCP - General 11/03/20 documented as of this encounter
--- OUTSIDE RECORDS SUMMARY | 2024-03-25 01:17 | XMS_ITS | Data Portability ---
Author Organization [place] - [facility] [employer], Main Office Address [address] [place] [address] Care Team Providers Care Site Manager Name Role Phone CARLOS SAMUEL Primary Care Provider Assessment Encounter Date Assessment Date Assessment LastModified [...] - 3 yrs ago. Cont f/u with Gyne/SOIL SAMPLER as per schedule. Flu - On next visit. Tdap, Gardasil - At pharmacy/HD. F/u in 2 weeks. Annual labs in 12/03. [email or web address] Not available 11/11/2022 17:03:53 11/18/2022 11/18/2022 31 [...] - 3 yrs ago. Cont f/u with Gyne/SOIL SAMPLER as per schedule. Flu - 11/18/22. Tdap, Gardasil - At pharmacy/HD. F/u in 3 months. CBC, TIBC in 03/05. Annual labs in 12/03. [email or web address] Not available 11/18/2022 12:48:54 Plan of Treatment Reminders Order Date Submit Date Provider Last Modified By Organization Details Last Modified Time Details Appointments None recorded. Lab vitamin D, 25-hydroxy, total, serum [address] (Lab), [address] [place], [address], 08:52:31 vitamin B12 + folate, serum or blood [address] (Lab), [address] [place], [address], 08:52:31 glycohemogl obin, total, blood 2022 023 [facility] (Lab), [address] [place], [address], 18:07:05 CBC w/ auto diff 2022 023 [facility] (Lab), [address] [place], [address], 13:54:52 CMP, serum or plasma 2022 023 [facility] (Lab), [address] [place], [address], 3 13:55:48 lipid panel, serum 2022 023 [facility] (Lab), [address] [place], [address], 13:55:51 TSH, serum, reflex free T4 [address] (Lab), [address] [place], [address], 3 08:52:30 urinalysis complete, reflex culture [address] (Lab), [address] [place], [address], 3 08:52:31 CBC w/ auto diff 2022 024 [email or web address] [facility] (Lab), [address] [place], [address], 4 11:35:56 iron + total iron-bindin g capacity (TIBC), serum 2022 024 [email or web address] [facility] (Lab), [address] [place], [address], 4 11:35:56 pap, IG + HR HPV 2022 023 [facility] (Lab), [address] [place], [address], 3 07:53:12 Referral None recorded. Procedures None recorded. Surgeries None recorded. Imaging None recorded. Medication Orders cyanocobala min (vit B-12) 1,000 mcg sublingual tablet 2022 023 [facility] [place], [address], 3 12:44:38 cyanocobala min (vit B-12) 1,000 mcg/mL injection solution 2022 023 [email or web address] Not available 14:11:53 ergocalcife rol (vitamin D2) 1,250 mcg (50,000 unit) capsule 2022 023 [facility] [address] [place], [address], 3 12:44:40 ferrous sulfate 325 mg (65 mg iron) tablet 2022 023 [facility] [address] [place], [address], 12:44:39 Patient TargetsNo targets recorded. Patient Instructions Encounter Date Encounter Id Patient Instructions Last Modified By Organization Details Last Modified Time 11/27/2022 [id number] FU in 3 year for wwe with pap, preference per patient. [email or web address] Not available 11/27/2022 18:11:17 Reason for Referral None Reported. Results Created Date Observation Date Name Description Value Unit Range Abnormal Flag Note LastModifiedBy Organization Detail LastModifiedTime 11/15/1911/14/2022 CBC/C OMPLE TE BLD COUNT W/DIF F white blood cells 6.6 x10'3 /uL 4.2-10 .8 Not Available [facility] (Lab) [address] [place], [address], 11/14/2022 13:54:52 11/15/1911/14/2022 CBC/C OMPLE TE BLD COUNT W/DIF F red blood cells 4.47 x10'6 /uL 3.80-5 .20 Not Available [facility] (Lab) [address] [place], [address], 11/14/2022 13:54:52 11/15/1911/14/2022 CBC/C OMPLE TE BLD COUNT W/DIF F hemoglobin 11.7 g/dL 12.0-1 5.6 low Not Available [facility] (Lab) [address] [place], [address], 11/14/2022 13:54:52 11/15/1911/14/2022 CBC/C OMPLE TE BLD COUNT W/DIF F hematocrit 37.7 % 35.7-4 5.7 Not Available [facility] (Lab) [address] [place], [address], 11/14/2022 13:54:52 11/15/1911/14/2022 CBC/C OMPLE TE BLD COUNT W/DIF F mean red cell volume 84.3 fL 82.0-9 9.0 Not Available [facility] (Lab) [address] [place], [address], 11/14/2022 13:54:52 11/15/1911/14/2022 CBC/C OMPLE TE BLD COUNT W/DIF F mean red cell hemoglobin 26.2 pg 27.0-3 3.0 low Not Available [facility] (Lab) [address] [place], [address], 11/14/2022 13:54:52 11/15/1911/14/2022 CBC/C OMPLE TE BLD COUNT W/DIF F mean RBC HGB concentratio n 31.0 g/dL 31.0-3 6.0 Not Available [facility] (Lab) [address] [place], [address], 11/14/2022 13:54:52 11/15/1911/14/2022 CBC/C OMPLE TE BLD COUNT W/DIF F red cell distribution width 13.6 % 11.8-1 5.5 Not Available [facility] (Lab) [address] [place], [address], 11/14/2022 13:54:52 11/15/1911/14/2022 CBC/C OMPLE TE BLD COUNT W/DIF F platelets 352 x10'3 /uL 150-40 0 Not Available [facility] (Lab) [address] [place], [address], 11/14/2022 13:54:52 11/15/1911/14/2022 CBC/C OMPLE TE BLD COUNT W/DIF F mean platelet volume 9.8 fL 9.0-12 .4 Not Available [facility] (Lab) [address] [place], [address], 11/14/2022 13:54:52 11/15/1911/14/2022 CBC/C OMPLE TE BLD COUNT W/DIF F neutrophils 51.8 % 39.0-7 2.0 Not Available [facility] (Lab) [address] [place], [address], 11/14/2022 13:54:52 11/15/1911/14/2022 CBC/C OMPLE TE BLD COUNT W/DIF F lymphocytes 41.6 % 16.0-4 7.0 Not Available [facility] (Lab) [address] [place], [address], 11/14/2022 13:54:52 11/15/1911/14/2022 CBC/C OMPLE TE BLD COUNT W/DIF F monocytes 3.9 % 5.0-12 .0 low Not Available [facility] (Lab) [address] [place], [address], 11/14/2022 13:54:52 11/15/1911/14/2022 CBC/C OMPLE TE BLD COUNT W/DIF F eosinophils 2.3 % 1.0-7. 0 Not Available [facility] (Lab) [address] [place], [address], 11/14/2022 13:54:52 11/15/1911/14/2022 CBC/C OMPLE TE BLD COUNT W/DIF F basophils 0.2 % 0.0-2. 0 Not Available [facility] (Lab) [address] [place], [address], 11/14/2022 13:54:52 11/15/1911/14/2022 CBC/C OMPLE TE BLD COUNT W/DIF F immature granulocytes 0.2 % 0.00-0 .50 Not Available [facility] (Lab) [address] [place], [address], 11/14/2022 13:54:52 11/15/1911/14/2022 CBC/C OMPLE TE BLD COUNT W/DIF F neutrophils, absolute count 3.42 x10'3 /uL 1.5-8. 0 Not Available [facility] (Lab) [address] [place], [address], 11/14/2022 13:54:52 11/15/1911/14/2022 CBC/C OMPLE TE BLD COUNT W/DIF F lymphocytes, absolute count 2.74 x10'3 /uL 1.07-3 .43 Not Available [facility] (Lab) [address] [place], [address], 11/14/2022 13:54:52 11/15/1911/14/2022 CBC/C OMPLE TE BLD COUNT W/DIF F monocytes, absolute count 0.26 x10'3 /uL 0.29-0 .99 low Not Available [facility] (Lab) [address] [place], [address], 11/14/2022 13:54:52 11/15/1911/14/2022 CBC/C OMPLE TE BLD COUNT W/DIF F eosinophils, absolute count 0.15 x10'3 /uL 0.02-0 .53 Not Available [facility] (Lab) [address] [place], [address], 11/14/2022 13:54:52 11/15/1911/14/2022 CBC/C OMPLE TE BLD COUNT W/DIF F basophils, absolute count 0.01 x10'3 /uL 0.01-0 .08 Not Available [facility] (Lab) [address] [place], [address], 11/14/2022 13:54:52 11/15/1911/14/2022 CBC/C OMPLE TE BLD COUNT W/DIF F immature granulocytes ,absolute 0.01 x10'3 /uL 0.00-0 .05 Not Available [facility] (Lab) [address] [place], [address], 11/14/2022 13:54:52 11/15/1911/14/2022 CBC/C OMPLE TE BLD COUNT W/DIF F nucleated red blood cells 0.0 % -0 Not Available [facility] (Lab) [address] [place], [address], 11/14/2022 13:54:52 11/15/19 23 11/14/2022 CBC/C OMPLE TE BLD COUNT W/DIF F NRBC# 0.00 x10'3 /uL Not Available [facility] (Lab) [address] [place], [address], 11/14/2022 13:54:52 11/15/1911/14/2022 COMPR EHENS FAVIOLA METAB OLIC PANEL sodium 138 mmol/ L 137-14 5 Not Available [facility] (Lab) [address] [place], [address], 11/14/2022 13:55:48 11/15/1911/14/2022 COMPR EHENS FAVIOLA METAB OLIC PANEL potassium 4.6 mmol/ L 3.5-5. 1 Not Available [facility] (Lab) [address] [place], [address], 11/14/2022 13:55:48 11/15/19 23 11/14/2022 COMPR EHENS FAVIOLA METAB OLIC PANEL chloride 106 mmol/ L 98-107 Not Available [facility] (Lab) [address] [place], [address], 11/14/2022 13:55:48 11/15/19 23 11/14/2022 COMPR EHENS FAVIOLA METAB OLIC PANEL carbon dioxide 26 mmol/ L 22-30 Not Available [facility] (Lab) [address] [place], [address], 11/14/2022 13:55:48 11/15/19 23 11/14/2022 COMPR EHENS FAVIOLA METAB OLIC PANEL anion gap 10.6 mmol/ L 14-22 low Not Available [facility] (Lab) [address] [place], [address], 11/14/2022 13:55:48 11/15/1911/14/2022 COMPR EHENS FAVIOLA METAB OLIC PANEL glucose 84 mg/dL 70-99 Not Available [facility] (Lab) [address] [place], [address], 11/14/2022 13:55:48 11/15/1911/14/2022 COMPR EHENS FAVIOLA METAB OLIC PANEL BUN 7 mg/dL 8-19 low Not Available [facility] (Lab) [address] [place], [address], 11/14/2022 13:55:48 11/15/1911/14/2022 COMPR EHENS FAVIOLA METAB OLIC PANEL creatinine 0.54 mg/dL 0.66-1 .25 low Not Available [facility] (Lab) [address] [place], [address], 11/14/2022 13:55:48 11/15/1911/14/2022 COMPR EHENS FAVIOLA METAB OLIC PANEL GFR >60 Refer ence Range : Woodruff ge GFR Healt hy Adult : >60 [...] s/kdo qi/gf r_cal culat or Not Available [facility] (Lab) [address] [place], [address], 11/14/2022 13:55:48 11/15/1911/14/2022 COMPR EHENS FAVIOLA METAB OLIC PANEL alkaline phosphatase 69 U/L 38-126 Not Available [facility] (Lab) [address] [place], [address], 11/14/2022 13:55:48 11/15/1911/14/2022 COMPR EHENS FAVIOLA METAB OLIC PANEL alanine aminotransfe rase 18 U/L 0-35 Not Available [facility] (Lab) [address] [place], [address], 11/14/2022 13:55:48 11/15/19 23 11/14/2022 COMPR EHENS FAVIOLA METAB OLIC PANEL aspartate aminotransfe rase 22 U/L 15-37 Not Available [facility] (Lab) [address] [place], [address], 11/14/2022 13:55:48 11/15/1911/14/2022 COMPR EHENS FAVIOLA METAB OLIC PANEL bilirubin, total 0.40 mg/dL 0.20-1 .30 Not Available [facility] (Lab) [address] [place], [address], 11/14/2022 13:55:48 11/15/19 23 11/14/2022 COMPR EHENS FAVIOLA METAB OLIC PANEL calcium 9.3 mg/dL 8.4-10 .2 Not Available [facility] (Lab) [address] [place], [address], 11/14/2022 13:55:48 11/15/1911/14/2022 COMPR EHENS FAVIOLA METAB OLIC PANEL total protein 7.3 g/dL 6.3-8. 2 Not Available [facility] (Lab) [address] [place], [address], 11/14/2022 13:55:48 11/15/1911/14/2022 COMPR EHENS FAVIOLA METAB OLIC PANEL albumin 3.9 g/dL 3.4-5. 0 Not Available [facility] (Lab) [address] [place], [address], 11/14/2022 13:55:48 11/15/1911/14/2022 COMPR EHENS FAVIOLA METAB OLIC PANEL globulin 3.4 g/dL 2.6-4. 2 Not Available [facility] (Lab) [address] [place], [address], 11/14/2022 13:55:48 11/15/1911/14/2022 COMPR EHENS FAVIOLA METAB OLIC PANEL A/G ratio 1.1 ratio 1.0-2. 0 Not Available [facility] (Lab) [address] [place], [address], 11/14/2022 13:55:48 11/15/1911/14/2022 LIPID PANEL cholesterol 173 mg/dL 140-19 9 NIH DORI NSUS RECOM MENDA TION FOR AWILDA STERO L: ADULT CHILD LOW RISK: <200 <170 BORDE RLINE : <200- 239 ----- HIGH RISK: >240 >200 Not Available [facility] (Lab) [address] [place], [address], 11/14/2022 13:55:51 11/15/1911/14/2022 LIPID PANEL triglyceride s 91 mg/dL 0-150 NIH ODRI NSUS REPOR T RECOM MENDA TION FOR TRIGL YCERI VERO: ADULT CHILD LOW RISK: <150 ----- BODER LINE: 150-1 99 ----- HIGH RISK: >200 ----- Not Available [facility] (Lab) [address] [place], [address], 11/14/2022 13:55:51 11/15/1911/14/2022 LIPID PANEL HDL cholesterol 41 mg/dL 40- Not Available [facility] (Lab) [address] [place], [address], 11/14/2022 13:55:51 11/15/1911/14/2022 LIPID PANEL LDL cholesterol, [...] WILL NOT BE REPOR FLORIDALMA. Not Available [facility] (Lab) [address] [place], [address], 11/14/2022 13:55:51 11/15/1911/14/2022 URINA LYSIS COMPL ETE/I RIS W/RFX color YELLOW Not Available [facility] (Lab) [address] [place], [address], 11/14/2022 13:59:56 11/15/1911/14/2022 URINA LYSIS COMPL ETE/I RIS W/RFX appear EXTRA TURBID abnormal Not Available [facility] (Lab) [address] [place], [address], 11/14/2022 13:59:56 11/15/1911/14/2022 URINA LYSIS COMPL ETE/I RIS W/RFX specific gravity 1.024 1.001- 1.030 Not Available [facility] (Lab) [address] [place], [address], 11/14/2022 13:59:56 11/15/1911/14/2022 URINA LYSIS COMPL ETE/I RIS W/RFX pH 5.0 pH_un its 5.0-9. 0 Not Available [facility] (Lab) [address] [place], [address], 11/14/2022 13:59:56 11/15/1911/14/2022 URINA LYSIS COMPL ETE/I RIS W/RFX leukocytes NEGATI VE kayce/u L negati ve- Not Available [facility] (Lab) [address] [place], [address], 11/14/2022 13:59:56 11/15/1911/14/2022 URINA LYSIS COMPL ETE/I RIS W/RFX nitrite NEGATI VE negati ve- Not Available [facility] (Lab) [address] [place], [address], 11/14/2022 13:59:56 11/15/1911/14/2022 URINA LYSIS COMPL ETE/I RIS W/RFX protein NEGATI VE mg/dL negati ve- Not Available [facility] (Lab) [address] [place], [address], 11/14/2022 13:59:56 11/15/1911/14/2022 URINA LYSIS COMPL ETE/I RIS W/RFX glucose NORMAL mg/dL normal - Not Available [facility] (Lab) [address] [place], [address], 11/14/2022 13:59:56 11/15/1911/14/2022 URINA LYSIS COMPL ETE/I RIS W/RFX ketones NEGATI VE mg/dL negati ve- Not Available [facility] (Lab) [address] [place], [address], 11/14/2022 13:59:56 11/15/1911/14/2022 URINA LYSIS COMPL ETE/I RIS W/RFX urobilinogen NORMAL mg/dL normal - Not Available [facility] (Lab) [address] [place], [address], 11/14/2022 13:59:56 11/15/1911/14/2022 URINA LYSIS COMPL ETE/I RIS W/RFX bilirubin NEGATI VE mg/dL negati ve- Not Available [facility] (Lab) [address] [place], [address], 11/14/2022 13:59:56 11/15/1911/14/2022 URINA LYSIS COMPL ETE/I RIS W/RFX blood NEGATI VE mg/dL negati ve- Not Available [facility] (Lab) [address] [place], [address], 11/14/2022 13:59:56 11/15/1911/14/2022 URINA LYSIS COMPL ETE/I RIS W/RFX white blood cells 9-20 /i??h pfi?? 0-8 abnormal Not Available [facility] (Lab) [address] [place], [address], 11/14/2022 13:59:56 11/15/1911/14/2022 URINA LYSIS COMPL ETE/I RIS W/RFX red blood cells NONE /i??h pfi?? 0-4 Not Available [facility] (Lab) [address] [place], [address], 11/14/2022 13:59:56 11/15/19 23 11/14/2022 URINA LYSIS COMPL ETE/I RIS W/RFX bacteria NONE Not Available [facility] (Lab) [address] [place], [address], 11/14/2022 13:59:56 11/15/1911/14/2022 URINA LYSIS COMPL ETE/I RIS W/RFX mucous MANY /i??l pfi?? abnormal Not Available [facility] (Lab) [address] [place], [address], 11/14/2022 13:59:56 11/15/1911/14/2022 URINA LYSIS COMPL ETE/I RIS W/RFX squamous epithelial PACKED FIELD /i??l pfi?? abnormal Not Available [facility] (Lab) [address] [place], [address], 11/14/2022 13:59:56 11/15/1911/14/2022 VITAM IN D 25-HY DROXY vd25oh 22.9 NG/mL 30-100 low Vitam in D Statu s: Defic ient: <20 ng/mL Insuf ficie nt: 20-29 ng/mL Suffi cient : 30-10 0 ng/mL Not Available [facility] (Lab) [address] [place], [address], 11/14/2022 14:10:22 11/15/1911/14/2022 TSH W/REF VALERI FT4 TSH with reflex free T4 1.680 uIU/m L 0.465- 4.680 Not Available [facility] (Lab) [address] [place], [address], 11/14/2022 14:27:20 11/15/1911/14/2022 VITAM IN B12 (INA LAURA ) vb12 287 pg/mL 239-93 1 Not Available [facility] (Lab) [address] [place], [address], 11/14/2022 14:58:23 11/15/1911/14/2022 FOLAT E, SERUM /PLAS MA folate 7.11 NG/mL 2.76-2 0.0 Not Available [facility] (Lab) [address] [place], [address], 11/14/2022 14:58:28 11/15/1911/14/2022 HEMOG LOBIN A1C HA1C 5.3 % 4.0-6. 0 Diabe vishal Scree ashley Crite nithin: <5.7% Consi stent with absen ce of diabe vishal 5.7-6 .4% Consi stent with incre ased risk for diabe vishal (pred iabet es) >OR=6 .5% Consi stent with diabe vishal REFER ENCE: Diabe vishal Care 2016, 39(Heart ppl.1 ):s13 -s22 Not Available [facility] (Lab) [address] [place], [address], 11/14/2022 18:07:05 11/28/1912/02/2022 PAP THINP REP W/HPV -HR diagnosis: Yary SALMERON FOR INTRA EPITH ELIAL LESIO N OR RUPERT TEJADA . Not Available [facility] (Lab) [address] [place], [address], 12/02/2022 13:08:59 11/28/1912/02/2022 PAP THINP REP W/HPV -HR specimen adequacy: Yary Banda Satis factaria ry for evalu ation . Endoc ervic al and/o r squam ous m etapl astic cells (endo cervi gerry compo nent) are prese nt. Not Available [facility] (Lab) [address] [place], [address], 12/02/2022 13:08:59 11/28/1912/02/2022 PAP THINP REP W/HPV -HR performed by: Yary Ponce Radcl iff, Cytot echno logis t (ASCP ) Not Available [facility] (Lab) [address] [place], [address], 12/02/2022 13:08:59 11/28/1912/02/2022 PAP THINP REP W/HPV -HR . . Not Available [facility] (Lab) [address] [place], [address], 12/02/2022 13:08:59 11/28/1912/02/2022 PAP THINP REP W/HPV [...] ts do occur . . Not Available [facility] (Lab) [address] [place], [address], 12/02/2022 13:08:59 11/28/1912/02/2022 PAP THINP REP W/HPV -HR test methodology: Yadiraen t This liqui d based ThinP rep(R ) pap test was scree karol with the use of an image guide lion paez. Not Available [facility] (Lab) [address] [place], [address], 12/02/2022 13:08:59 11/28/1912/02/2022 PAP THINP REP W/HPV -HR aptima HPV, reflex Negati ve negati ve This nucle ic acid ampli ficat ion test detec ts fourt een high- risk HPV types (16,1 8,31, 33,35 ,39,4 5,51, 52,56 ,58,5 9,66, 68) witho ut diffe renti ation . Perfo rmed at: [facility] [place] [facility] [address] [facility] , [place] [address] Lab Direc tor: Hipolito prado MD, Phone : [phone] Perfo rmed at: [facility] [place] [address] , [place] [address] Lab Direc tor: Ken ahn MD, Phone : [phone] Perfo rmed at: =[facility] [place] [address] , [place] [address] Lab Direc tor: Ken ahn MD, Phone : [phone] Not Available [facility] (Lab) [address] [facility], [place], [address], 12/02/2022 13:08:59 Result Notes None recorded. Problems Name Problem SNOMED Code Status Onset Date Resolution Date Notes Provider Name and Address Organization Details Recorded Time Vitamin B12 deficiency (non anemic) 45940823 Active 023 Carlos Samuel MD [facility], [address], [address], evly 3 16:43:33 Overweight 243267072 Active 023 Carlos Samuel MD [facility], [address], [address], evly 3 16:43:43 Fatigue 80641847 Active Richa Samuel MD [facility] [facility], [address], [address], evly 3 17:01:45 Anemia 345576939 Active Richa Samuel MD [address] [facility], [place], [address], evly 3 12:27:55 Vitamin D deficiency 35760131 Active Richa Samuel MD [address] [facility], [place], [place], [address], evly 3 12:28:04 Problem Notes None recorded. Procedures Surgical History Date Name Laterality Status Provider Name and Address Organization Details Recorded Time 11/27/2022 Date of Last Pap Smear completed Oksana Hall RN [facility] [employer] [facility] 11/27/2022 15:42:28 Imaging Results None recorded. [...] Updated DateTime 3 149.86 cm 27.8 kg/m2 27020.6 g 98.4 [degF] 78 /min 16 /min 98 % 98 % 102 mm[Hg] 60 mm[Hg] [facility] [employer] [facility] 3 16:39:33 Date Recorded Body height Body mass index (BMI) Body weight Body temperature Heart rate Oxygen saturation Oxygen saturation in Arterial blood by Pulse oximetry Systolic blood pressure Diastolic blood pressure Provider Name and Address Organization Details Last Updated DateTime 3 149.86 cm 27.1 kg/m2 65597.1 3 g 97.6 [degF] 76 /min 98 % 98 % 99 mm[Hg] 67 mm[Hg] Katy Manzano MA [facility] [employer] [facility] 3 12:40:33 Date Recorded Body height Body mass index (BMI) Body weight Body temperature Heart rate Respiratory rate Oxygen saturation Oxygen saturation in Arterial blood by Pulse oximetry Pain severity - 0-10 verbal numeric rating [Score] - Reported Systolic blood pressure Diastolic blood pressure Provider Name and Address Organization Details Last Updated DateTime 149.86 cm 27.5 kg/m2 16518.9 1 g 96.6 [degF] 65 /min 16 /min 97 % 97 % 0 124 mm[Hg] 80 mm[Hg] Oksana Hall RN [facility] [employer] [facility] 15:39:49 Social History Question Answer Notes LastModified by Organizat ion Details LastModified Time Tobacco Smoking Status Never Smoker Tres garzon [facility] [employer] [facility] 11/11/2022 16:34:43 Do You Have An Advance [...] Or The Highest Degree You Have Received? [id number] Information not available 11/11/2022 Have There Been Any Changes To Your Family Or Social Situation? No Information no t available 11/11/2022 What Is The Fluoride Status Of Your Home? Fluoridated Information not available 11/11/2022 Do You Use Insect Repellent Routinely? Yes Information not available 11/11/2022 [facility] not available 11/11/2022 Do You Have A Medical Power Of Family Court Justice? No Information not available 11/11/2022 How Many [...] Anxious, Or Unable To Sleep At Night)? [id number] Information not available 11/11/2022 Do You Use [...] DIVERTICULITIS N SLEEP APNEA N CHICKENPOX N ALLERGIES/HAYFEVER N BACK INJECTIONS N INFECTIOUS DISEASE N PROSTATE N HEART ARRHYTHMIA N ESRD N INSOMNIA N HIGH CHOLESTEROL / HYPERLIPIDEMIA N EYE PROBLEMS N HYPERTHYROIDISM N PVD N EATING DISORDER N EDEMA N CHRONIC PAIN SYNDROME N CONSTIPATION N CAROTID BLOCKAGE N BACK / NECK PROBLEMS N HAVE YOU BEEN HOSPITALIZED OR SEEN IN [facility] IN THE PAST YEAR ? [...] 11/18/2022 completed ZENAIDA Keys, [place] - [facility] [employer] 11/18/2022 16:53:43 Past Encounters Encounter ID Performer Location Encounter Start Date Encounter Closed Date Diagnosis/Indication Diagnosis SNOMED-CT Code Diagnosis ICD10 Code Diagnosis Note [id number] Carlos Samuel MD [address] [address] 11/11/2022 16:28:07 11/11/2022 17:05:34 Adult health examination 068108882 Z00.00 Vitamin B1 2 deficiency (non anemic) 92053441 E53.8 Overweight 810178945 E66 .3 Screening for disorder 938018384 Z13.9 Fatigue 07091318 R53.83 [id number] Carlos Samuel MD [address] [address] 11/14/2022 10:13:20 11/14/2022 10:47:52 [id number] Carlos Samuel MD [address] [address] 11/18/2022 12:14:01 11/18/2022 12:53:02 Vitamin B12 deficiency (non anemic) 99571752 E53.8 Fatigue 42622081 R53.83 Overweight 135423889 E66 .3 Anemia 062808159 D64.9 Vitamin D deficiency 347 31885 E55.9 Administra tion of influenza vaccine 20606400 Z23 [id number] Oksana Payne NP [address] [address] 11/27/2022 15:22:29 11/27/2022 17:46:11 Gynecologic examination 74956111 Z01.419 Encouraged well balanced meals, active lifestyle, and routine vision and dental appts. Health Concerns Section Related Observation LastModified by Organization Detai ls LastModified Time None Recorded Concern Status LastModified by Organization Details LastModified Time None Recorded Advance Directives Directive N: Payers Encounter Date Sequence Insurance Name Policy Number Policy [place] Covered Member ID [place] Member ID Guarantor Name 11/11/2022 1 [place] [employer] [facility] [id number] [facility] 11/14/2022 1 [place] [employer] [facility] [id number] 11/18/2022 1 [place] [employer] Aurelia Samuel [id number] Aurelia Samuel 11/27/2022 1 [place] [facility] Aureliajane Samuel [id number] [facility] Notes Date Note Type Note Provider Name and Address Organization Details Recorded Time 11/11/2022 text/html New pt visit:32 yo F is here to establish her care. Pt was seeing PCP at [place] in the past.Doing overall well. Pt wants to do full lab tests including Vit B12. Pt gets redness of her both eyes and in the past, her Vit b12 was low, and when it was corrected, it resolved. C/o fatigue at times. Denies any mood problems/snoring. Pt is f/u with Ophtho too.PMH, FH and SH reviewed. Carlos Samuel MD [address], [place], [address], evly 11/11/2022 17:04:25 11/18/2022 text/html Pt is here for f /u on her annual labs. Doing overall well. Denies any new concern. Pt gets redness of her both eyes and in the past, her Vit b12 was low, and when it was corrected, it resolved. C/o fatigue at times. Denies any mood problems/snoring. Pt is f/u with Ophtho too. Carlos Samuel MD [address], [place], [address], evly 11/18/2022 12:49:41 11/27/2022 text/html Here for wwe. Has 19 mo old.Has copper IUD (10 year) placed 6 mo after baby born.Period heavy for 2 days, then 4 days later done. Occasionally done at 7 days. Getting monthly. Oksana Payne NP [address], [facility], [place], [address], evly 11/27/2022 18:11:32 OBGyn Episode No OBEpisode recorded.
--- NOTE | 2024-03-25 08:02 | PM.IMHP ---
H&P: HPI History of Present Illness Date/Time: 03/25/24 08:02 Chief Complaint: retained IUD desires permanent sterilization Narrative: 34-year-old female who presents for hysteroscopic IUD removal and laparoscopic bilateral salpingectomy for permanent sterilization. Patient states she has ParaGard copper IUD in placed. Patient states she incidentally became with the IUD in place. [facility] was then lodged in the uterine muscle. Patient desires permanent sterilization via bilateral salpingectomy. Review of Systems Cardiovascular: Cardiovascular: Denies chest pain, Denies leg edema, Denies palpitations, Denies dyspnea and Denies dyspnea on exertion Respiratory: Respiratory: Denies cough, Denies dyspnea and Denies dyspnea on exertion Gastrointestinal: Gastrointestinal: Denies abdominal pain, Denies constipation, Denies diarrhea, Denies nausea and Denies vomiting Genitourinary: Genitourinary: Denies hematuria, Denies urinary frequency, Denies dysuria, Denies pelvic pain, Denies urinary incontinence and Denies vaginal discharge Neurologic: Reports system reviewed and no additional complaints, except as documented Psychiatric: Psychiatric: Reports no additional psychiatric complaints Endocrine: Endocrine: Denies palpitations PMFSH Past Medical History Medical History (Updated 12/02/23 @ 13:48 by Laurent Bolaños MD) Encounter for removal of intrauterine contraceptive device Social History Social History Smoking status: Never smoker Living arrangements: with family Spiritual care concerns: No Meds Home Medications and Allergies Home Medications ?Medication ?Instructions ?Recorded ?Confirmed ?Type No Home Medications 12/02/23 03/19/24 History Allergies Allergy/AdvReac Type Severity Reaction Status Date / Time No Known Allergies Allergy Unverified 03/19/24 14:07 Exam Const: General: no acute distress Eyes: EOM: EOMs intact bilaterally Neck: Neck: supple Thyroid: thyroid normal Chest: Breast/axilla inspection: normal inspection of the breasts Breast/axilla palpation: normal palpation of the breasts, normal palpation of the axillae and no axillary lymphadenopathy Resp: Effort & Inspection: normal respiratory effort Auscultation: clear to auscultation bilaterally Cardio: Rate: regular rate Rhythm: regular rhythm GI: Inspection: non-distended GI Palp: Yes Soft to palpation, No Tenderness to palpation present (GI) and No Guarding due to palpation present (GI) Auscultation: normal bowel sounds : General: No bladder normal to palpation External Female Exam: normal external appearance Speculum Exam - Vagina: normal vaginal discharge and No vaginal bleeding Speculum Exam - Cervix: nontender Bimanual exam- vagina & uterus: No bladder normal to palpation and No Cervical tenderness present OB/external & speculum: No vaginal bleeding Skin: General skin exam: normal color and no rashes or lesions noted Neuro: Cognition (Neuro): normal cognition Speech: normal speech Extrem: General: normal to inspection and no edema Psych: Mental Status: mental status grossly normal Affect: normal affect Assessment and Plan Assessment and plan (1) Encounter for removal of intrauterine contraceptive device: Code(s): Z30.432 - Encounter for removal of intrauterine contraceptive device Status: Acute Assessment and Plan: 34 yo female presents for ParaGard IUD removal Patient states she incidentally became with ParaGard IUD in place Patient claims [facility] Patient claims the IUD is still within the uterus IUD strings not visualized on exam will plan for hysteroscopic IUD removal (2) Encounter for sterilization: Code(s): Z30.2 - Encounter for sterilization Status: Acute Assessment and Plan: 34-year-old female who presents for bilateral salpingectomy for permanent sterilization Risks, benefits, alternatives discussed at length Patient consented for permanent sterilization via salpingectomy
--- NOTE | 2024-03-25 11:44 | WPDHPUPDATE1 ---
History and Physical Update Update Date/Time: 03/25/24 11:44 History and Physical has been reviewed, including an updated exam of the patient. There are NO changes in the patient's condition. Risks, benefits, and alternatives have been discussed and questions answered. Patient agrees to proceed with procedure.
--- NOTE | 2024-03-25 12:01 | P.PNAN_ITS ---
Anes - Initial Pre Proc Eval Procedure: Operation Date: 03/25/24 12:00 Proposed Procedures p Hysteroscopy Removal of Intrauterine Device - Laurent Bolaños MD s Bilateral Laparoscopic Salpingectomy - Laurent Bolaños MD Date/Time: 03/25/24 12:01 Surgeon: Laurent Bolaños MD Pre Op Diagnosis: desires sterilization, retained iud Patient Data Age: 34 Gender: F Height: 1.5 m Weight: 61.4 kg Allergies Allergy/AdvReac Type Severity Reaction Status Date / Time No Known Allergies Allergy Unverified 03/19/24 14:07 Home Medications ?Medication ?Instructions ?Recorded ?Confirmed ?Type No Home Medications 12/02/23 03/19/24 History Patient hx anesthesia problems: none Family hx anesthesia problems: none Results Review: All pre-operative results and documents have been reviewed as part of the pre- operative evaluation. [facility] Past Medical History Medical History Encounter for removal of intrauterine contraceptive device Social History Social History Smoking status: Never smoker Living arrangements: with family Spiritual care concerns: No Anes - Eval Final PreProcedure Day of Procedure 03/25/24 12:01 Patient weight: overweight Heart: regular rate and rhythm Lungs: clear to auscultation Airway: Mallampati scale class II Neurological: alert and oriented Last oral intake: >/= 8 hours ASA classification: II Emergent: no Anesthetic plan: proceed Anesthesia type and monitoring: general ETT and standard monitoring Results Review: All pre-operative results and documents have been reviewed as part of the pre- operative evaluation. Informed Consent: The patient's anesthetic plan and its attendant risks and benefits were discussed with the patient/family/POA. Questions were solicited and answers provided to the satisfaction of the patient/family/POA.
[2024-03-25] MEDS: LACTATED RINGERS 1,000 ML 30 ML IV CONT ×2 (12:06→15:09)
[2024-03-25] MEDS: ACETAMINOPHEN 500 MG TABLET 1000 MG PO ×2 (12:06→19:31)
[2024-03-25] MEDS: KETOROLAC 15 MG/ML VIAL (*BKC) IV PUSH (12:06)
[2024-03-25 12:35] LABS: BEDSIDEPREGUCG Negative (Negative)
[2024-03-25] MEDS: LIDO 1%/EPINEPHRINE 1:100,000 50 ML VIAL 15 ML INFILTRATE (13:25)
--- NOTE | 2024-03-25 14:02 | S_PTH ---
PATIENT: Aurelia Samuel LOC: [facility] U#:[id number] AGE/SX: 34/F ROOM: RE03/25/[address]: Laurent Bolaños MD : 1990 BED: DIS: 03/25/2024 SPEC #: [id number] RECD: 03/26/24 10:18 STATUS: KOLBY REQ #: [id number] VANESSA: 03/25/24 14:[address]: Laurent Bolaños DEPT: [facility] Surgical RECD BY: Gisele So ENTERED: 03/26/24 10:18 SP TYPE: Surgical OTHR DR: [employer]ICIAN Tissues: A - Fallopian Tube Bilateral Procedures: Gross and Microscopic Level 2 Hematoxylin and Eosin Stain
--- NOTE | 2024-03-25 14:33 | P.OP_ITS ---
Procedure Note - Detailed Date of Procedure 03/25/24 Pre-op Diagnosis desires sterilization, retained iud Post-op Diagnosis Same Procedure Performed hysteroscopy laparoscopic bilateral salpingectomy laparoscopic IUD removal Surgeon Laurent Bolaños MD Anesthesia General Indications desires permanent sterilization retained IUD Findings normal appearing uterus, bilateral fallopian tubes, simple appearing left ovarian cyst IUD implanted through the uterine myometrium, the IUD had adhered to the bowel serosa and the ovarian serosa. Description of Procedure the patient was taken to the operating room where general endotracheal anesthesia was undertaken and found to be adequate. She was then prepped and draped in the dorsal lithotomy position. A pre-operative team brief and time- out were completed. A catheter was placed to drain the bladder. Speculum was placed in the vagina and the cervix was identified. A single tooth tenaculum was placed on the anterior lip of the cervix. Hysteroscopy, using a normal saline medium, was performed and showed the above findings. There was no sign of any IUD within the intrauterine cavity. Hysteroscopy was then ended. An acorn uterine manipulator was placed. Attention was then turned to the abdomen which was anesthetized umbilical he with injected anesthetic. A 5 mm skin incision was made in the umbilicus. A 5 mm optical trocar was then placed with direct visualization of the abdominal layers during placement. The trocar stylette was removed and the camera was used to verify intra-abdominal placement. CO2 insufflation was then connected and The abdominal cavity was insufflated. General abdominal and pelvic survey was performed. Two other laparoscopic port site incisions were made approximately 2 cm superior and medial of the ASIS bilaterally. Bowel was noted to be adherent to the posterior uterine serosa. The string of the IUD was noted along the posterior portion of the uterine serosa. The adhesions were taking down with blunt dissection. The IUD was adherent to the serosa of the left ovary and the bowel. One of the IUD arms was not visualized. Due to the adhesion to the bowels, general surgery was consulted intraoperatively. Dr. Thapa scrubbed into the case. Under direct visualization the IUD was removed from the bowel and ovary with gentle traction. The area of bowel was copiously irrigated and interrogated. No bowel contents were expressed. The bowel serosa was hemostatic and thought to be intact. The IUD was then removed from the abdomen through the laparoscopic port in its entirety. Both fallopian tubes were inspected and identified out to the level of the fimbriae. The Fimbriated end of the left fallopian tube was then grasped with a blunt grasper. the fallopian tube was then transected along its inferior aspect along the mesosalpinx with the LigaSure device. Transection was carried out to the fallopian tubes insertion into the uterine fundus. The fallopian tube was then completely transected from the uterus using the LigaSure device. This procedure was repeated for the right fallopian tube. Good hemostasis was maintained throughout. The transected portions of fallopian tube were removed from the abdomen through the 5 mm laparoscopic port. The surgical field was inspected and again could hemostasis was noted. At this point the procedure was ended. The abdomen was desufflated. All laparoscopic ports were removed from the abdomen. Abdominal incisions were closed with 4-0 Vicryl in a subcuticular fashion.. The acorn manipulator and tenaculum was removed from the vagina. The cervix was inspected and good hemostasis was obtained. Sponge, lap and needle counts were correct. The patient tolerated the procedure well. The patient was taken out of dorsal lithotomy. anesthesia was reversed. The patient was taken to PACU in stable condition. Estimated Blood Loss 10 Urine Output 150 Drains No Packing No Pathology Yes ( Bilateral fallopian tubes) Complications No immediate complications Condition Stable Disposition PACU [facility] Billing Surgery - Charge Forward: Surgery Billing
--- NOTE | 2024-03-25 14:40 | PM.CNGS ---
Assessment and Plan Assessment and plan (1) Intrauterine device (IUD) migration: Qualifiers: Encounter type: initial encounter Qualified Code(s): T83.32XA - Displacement of intrauterine contraceptive device, initial encounter Code(s): T83.32XA - Displacement of intrauterine contraceptive device, initial encounter Status: Acute Assessment and Plan: Successfully removed by Dr. Bolaños laparoscopically. It was adherent to the sigmoid colon but did not perforate the wall of the sigmoid colon or any other bowel. Patient will be observed overnight and I will check her again tomorrow. If she is doing well, can probably be discharged tomorrow. Thank you for asking me to see this patient in consultation. History of Present Illness Consult details Consult date: 03/25/24 Requesting physician: Laurent Bolaños MD Narrative: I was asked to see this patient for intraoperative consultation by Dr. Bolaños. She has a history of IUD migration and desiring bilateral tubal ligation. While doing this procedure, Dr. Bolaños noted that the IUD was very adherent to the sigmoid colon and appeared to have 1 of the limbs in the sigmoid colon. I was asked to see this patient intraoperatively in consultation. Review of Systems Review of Systems: All systems reviewed & are unremarkable except as noted in HPI and below (See history and physical) ROS unobtainable: Yes unobtainable due to endotracheal tube PMFSH Past Medical History Medical History Encounter for removal of intrauterine contraceptive device Social History Social History Smoking status: Never smoker Living arrangements: with family Spiritual care concerns: No Meds Home Medications and Allergies Home Medications ?Medication ?Instructions ?Recorded ?Confirmed ?Type No Home Medications 12/02/23 03/19/24 History Allergies Allergy/AdvReac Type Severity Reaction Status Date / Time No Known Allergies Allergy Unverified 03/19/24 14:07 Vital Signs Vital Signs - 24 hr 03/25/24 12:30 03/25/24 14:27 Temperature 36.6 C 36.5 C Pulse Rate 73 103 H Respiratory Rate 14 12 Blood Pressure 111/68 116/78 Pulse Oximetry 100 100 Oxygen Delivery Room Air Simple Face Mask Oxygen Flow Rate 6 Exam Narrative: Exam limited to laparoscopic findings. I did briefly scrubbed in. The IUD appeared to be entrapped in 1 of the sigmoid epiploica but was directly up against the wall of the sigmoid colon over the sacrum. Fortunately it was on the anterior wall of the sigmoid colon here. Dr. Bolaños did some laparoscopic adhesiolysis and then 1 there was very little remaining of the IUD limb, removed it. There was a 2 cm inflammatory tract on the sigmoid colon wall. When I was scrubbed in as well as when I was simply observing, the area was put under pressure, irrigated and suctioned. No bubbling, no sign of any mucosa, no sign of any colonic content were noted at any point. I saw no evidence of this penetrating the serosa of the sigmoid colon at all. After evaluating this for several minutes, we concluded that it was adherent superficially only. Dr. Bolaños kept control of the surgery throughout and my participation was only as a data virtualization consultant. Results Labs Labs: All other labs normal.
--- NOTE | 2024-03-25 18:06 | PC.NURSE ---
Patient wishing to go home tonight, Dr Bolaños notified and ok to dc patient tonight.
--- NOTE | 2024-03-25 19:39 | PC.NURSE ---
1938- Pt states pain is managed and ready to be discharged to home. RN educated pt on pain management and discharge instructions. Pt and significant other verbalize understanding
== END 2024-03-25 19:49 | disposition home or self-care (01) ==
LOC: ANHSURGERY 10:17 → ANHOBPP 16:06
PROVIDERS: Visit Provider Student in an Organized Health Care Education/Training Program
PROC: 0U5B8ZZ Destruction of Endometrium, Via Natural or Artificial Opening Endoscopic (ICD-10-PCS; CPT 58563; principal; 2024-03-25 12:00)
DX: Z30.2 Encounter for sterilization (principal); N83.292 Other ovarian cyst, left side; T83.89XA Other specified complication of genitourinary prosthetic devices, implants and grafts, initial encounter; Y84.8 Other medical procedures as the cause of abnormal reaction of the patient, or of later complication, without mention of misadventure at the time of the procedure
CPT/HCPCS: 58661; 58579; 88302; 99199; A9270; J0330; J1100; J1885; J2003; J2004; J2250; J2405; J2704; J3010; J7120